=== PATIENT | female | born 1970 | race Caucasian/White ===

== ENCOUNTER 2017-05-01 18:21 | Emergency (ER) | payer OTHER ==
[~2017-05-01] VITALS: Ht 157.5 cm; Wt 97.0 kg
[~2017-05-01 18:21] MED LIST: APIX2.5T PO; HYDR-3288 PO; HYDR-3580 PO; LEVO100T5 PO
[2017-05-01 18:24] VITALS: BP 139/85; PULSE 93; RESP 16; TEMP 98.4; O2SAT 98
--- NOTE | 2017-05-01 19:24 | PD ---
HPI Chief Complaint: Cold / Flu Symptoms Time Seen by Provider: 19:19 Travel History International Travel<30 days: No Contact w/Intl Traveler<30days: No Traveled to known affect area: No History of Present Illness HPI The patient is a 46-year-old female that has had cough and wheezing since January. She saw the PA at [facility] back in January and was put on a Z-Delta but has a persistent cough and wheeze. The reason she came in [facility] is because she has a sharp, pleuritic pain on her right chest. She does have an appointment at [facility] tomorrow at 8:00. She has never had a pulmonary embolus. She was on [place] was about a year ago for hip replacement but she has been off aliquots for about a year now. She denies any hemoptysis or fever. PFSH Past Medical History Arthritis: Yes Asthma: Yes Autoimmune Disease: No Anxiety: No Depression: No Heart Rhythm Problems: No Cancer: No Cardiovascular Problems: No High Cholesterol: No Chemotherapy: No Chest Pain: No Congestive Heart Failure: No COPD: No Cerebrovascular Accident: No Diabetes: No Endocrine: Yes (HYPOTHYROIDISM) GERD: No Genitourinary: No Hepatitis: No Hiatal Hernia: Yes (HERNIA REPAIR IN THE PAST) Immune Disorder: No Kidney Stones: No Musculoskeletal: Yes (OA) Neurologic: Yes (ANGEL'S PALSY LEFT FACE) Psychiatric: No Reproductive: No Respiratory: No Migraines: Yes Radiation Therapy: No Renal Failure: No Seizures: No Sickle Cell Disease: No Sleep Apnea: No Thyroid Disease: Yes Ulcer: No LMP: MENOPAUSAL Past Surgical History Abdominal Surgery: Yes (INGUINAL HERNIA REPAIR, TUMMY TUCK) AICD: No Arteriovenous Shunt: No Cardiac Surgery: No Ear Surgery: Yes (PRK) Endocrine Surgery: No Eye Surgery: No Genitourinary Surgery: No Gynecologic Surgery: Yes ( X3) Insulin Pump: No Joint Replacement: Yes (LEFT HIP AND RIGHT HIP) Oral Surgery: Yes (TONSILECTOMY) Pacemaker: No Thoracic Surgery: No Social History Tobacco Use: No Substance Use: No Allergies-Medications (Allergen,Severity, Reaction): Coded Allergies: Sulfa (Sulfonamide Antibiotics) (Unverified Allergy, Severe, HIVES, ) Reported Meds & Prescriptions Reported Meds & Active Scripts Active Reported [medical marijuana] 1 Each INH BID Gabapentin 800 Mg Tab 800 Mg PO DAILY Levothyroxine (Levothyroxine Sodium) 88 Mcg Tab 88 Mcg PO DAILY Review of Systems Except as stated in HPI: all other systems reviewed are Neg Physical Exam Narrative GENERAL: The patient is alert, oriented 3 in moderate apparent distress with her pleuritic chest pain. SKIN: Focused skin assessment warm/dry. HEAD: Atraumatic. Normocephalic. EYES: Pupils equal and round. No scleral icterus. No injection or drainage. ENT: No nasal bleeding or discharge. Mucous membranes pink and moist. NECK: Trachea midline. No JVD. CARDIOVASCULAR: Regular rate and rhythm. No murmur appreciated. RESPIRATORY: No accessory muscle use. Clear to auscultation. Breath sounds equal bilaterally. GASTROINTESTINAL: Abdomen soft, non-tender, nondistended. Hepatic and splenic margins not palpable. MUSCULOSKELETAL: No obvious deformities. No clubbing. No cyanosis. No edema. NEUROLOGICAL: Awake and alert. No obvious cranial nerve deficits. Motor grossly within normal limits. Normal speech. PSYCHIATRIC: Appropriate mood and affect; insight and judgment normal. Data Data Last Documented VS Vital Signs Date Time Temp Pulse Resp B/P (MAP) Pulse Ox O2 Delivery O2 Flow Rate FiO2 05/01/17 20:16 93 18 153/70 (97) 99 Room Air 05/01/17 18:24 98.4 Orders Orders Complete Blood Count With Diff (05/01/17 19:19) Comprehensive Metabolic Panel (05/01/17 19:19) Urinalysis - C+S If Indicated (05/01/17 19:19) Influenzae A/B Antigen (05/01/17 19:19) Iv Access Insert/Monitor (05/01/17 19:19) Ecg Monitoring (05/01/17 19:19) Oximetry (05/01/17 19:19) Oxygen Administration (05/01/17 19:19) Chest, Pa & Lat (05/01/17 19:19) Sodium Chloride 0.9% Flush (Ns Flush) (05/01/17 19:30) Albuterol-Ipratropium Neb (Duoneb Neb) (05/01/17 19:30) D-Dimer (05/01/17 19:24) Urine Culture (05/01/17 20:08) Ct Pulmonary Angiogram (05/01/17 21:02) Sodium Chloride 0.9% Flush (Ns Flush) (05/01/17 21:15) Iohexol 350 Inj (Omnipaque 350 Inj) (05/01/17 21:41) Potassium Chloride (Kcl) (05/01/17 22:15) Electrocardiogram (05/01/17 22:06) Troponin I (05/01/17 20:16) Labs Laboratory Tests Test 05/01/17 20:08 05/01/17 20:16 Urine Color YELLOW Urine Turbidity HAZY Urine pH 5.5 Urine Specific [place] 1.026 Urine Protein NEG mg/dL Urine Glucose (UA) NEG mg/dL Urine Ketones TRACE mg/dL Urine Occult Blood SMALL Urine Nitrite POS Urine Bilirubin NEG Urine Leukocyte Esterase NEG Urine RBC 0-3 /hpf Urine WBC 6-8 /hpf Urine WBC Clumps FEW Urine Squamous Epithelial Cells 0-5 /hpf Urine Bacteria MANY /hpf Microscopic Urinalysis Comment CULTURE INDICATED White Blood Count 6.8 TH/MM3 Red Blood Count 4.70 MIL/MM3 Hemoglobin 14.2 GM/DL Hematocrit 42.9 % Mean Corpuscular Volume 91.3 FL Mean Corpuscular Hemoglobin 30.3 PG Mean Corpuscular Hemoglobin Concent 33.1 % Red Cell Distribution Width 11.7 % Platelet Count 268 TH/MM3 Mean Platelet Volume 8.3 FL Neutrophils (%) (Auto) 54.9 % Lymphocytes (%) (Auto) 29.5 % Monocytes (%) (Auto) 13.2 % Eosinophils (%) (Auto) 2.0 % Basophils (%) (Auto) 0.4 % Neutrophils # (Auto) 3.8 TH/MM3 Lymphocytes # (Auto) 2.0 TH/MM3 Monocytes # (Auto) 0.9 TH/MM3 Eosinophils # (Auto) 0.1 TH/MM3 Basophils # (Auto) 0.0 TH/MM3 CBC Comment DIFF FINAL Differential Comment D-Dimer Quantitative (PE/DVT) 0.66 MG/L FEU Blood Urea Nitrogen 24 MG/DL Creatinine 1.00 MG/DL Random Glucose 106 MG/DL Total Protein 8.8 GM/DL Albumin 4.2 GM/DL Calcium Level 9.6 MG/DL Alkaline Phosphatase 52 U/L Aspartate Amino Transf (AST/SGOT) 32 U/L Alanine Aminotransferase (ALT/SGPT) 35 U/L Total Bilirubin 0.7 MG/DL Sodium Level 137 MEQ/L Potassium Level 2.9 MEQ/L Chloride Level 101 MEQ/L Carbon Dioxide Level 27.6 MEQ/L Anion Gap 8 MEQ/L Estimat Glomerular Filtration Rate 59 ML/MIN MDM Medical Decision Making Medical Screen Exam Complete: Yes Emergency Medical Condition: Yes Medical Record Reviewed: Yes Interpretation(s) The chest x-ray shows no acute cardiopulmonary disease. The d-dimer is elevated at 0.66. The CBC is normal. The complete metabolic profile shows a potassium of 2.9, BUN of 24 and total protein of 8.8 but is otherwise unremarkable. The urinalysis shows trace ketones, small occult blood, positive nitrate, specific gravity 1.026, 6-8 white cells with few white cell clumping's and many bacteria and culture is indicated. The EKG shows no acute ST elevation or depression. Differential Diagnosis Electrolyte disorder, pulmonary embolus, pneumonia, bronchitis, chest wall pain , pleuritic pain, acute coronary syndrome-extremely unlikely, viral upper respiratory infection, bronchitis with bronchospasm Narrative Course The patient has bronchitis with bronchospasm. There is no evidence for pneumonia or pulmonary embolus on the imaging. The patient will follow-up tomorrow as scheduled at 8:00 with her [facility] physician. Diagnosis Primary Impression: Bronchitis with bronchospasm Additional Instructions: As we discussed, follow-up at 8:00 tomorrow with your [facility] physician. We will give you the results of the testing/imaging that we did here. This is to be taken to your [facility] physician. Disposition: 01 DISCHARGE HOME Condition: Stable Dewey Rodriguez MD May 01, 2017 19:24
[2017-05-01] MEDS ORDERED: SODIUM CHLORIDE 0.9% FLUSH 10 ML FLUSH IVF PRN ×2 (19:30→21:15)
[2017-05-01] MEDS: RESP: ALBUTEROL 2.5 MG/IPRATROPIUM 0.5 MG NEB (SCH) INH (19:37)
[2017-05-01 20:16] VITALS: BP 153/70; PULSE 93; RESP 18; O2SAT 99
[2017-05-01 20:34] LABS: AUTOMATED NEUTROPHIL # 3.8 TH/MM3 (1.8-7.7); BASOPHIL % 0.4 % (0.0-2.0); EOSINOPHIL # 0.1 TH/MM3 (0-0.4); HEMATOCRIT 42.9 % (35.0-46.0); HEMOGLOBIN 14.2 GM/DL (11.6-15.3); LYMPH % 29.5 % (9.0-44.0); MEAN CELL VOLUME 91.3 FL (80.0-100.0); MEAN CORPUSCULAR HEMOGLOBIN 30.3 PG (27.0-34.0); MEAN CORPUSCULAR HGB CONC 33.1 % (32.0-36.0); MEAN PLATELET VOLUME 8.3 FL (7.0-11.0); MONO % 13.2 % (0.0-8.0); MONOCYTE # 0.9 TH/MM3 (0-0.9); NEUT % 54.9 % (16.0-70.0); PLATELET COUNT 268 TH/MM3 (150-450); RED CELL DISTRIBUTION WIDTH 11.7 % (11.6-17.2); WHITE BLOOD COUNT 6.8 TH/MM3 (4.0-11.0)
[2017-05-01 20:34] LABS: BILIRUBIN, URINE NEG (NEG); BLOOD, URINE SMALL (NEG); GLUCOSE,URINE NEG (NEG); KETONE, URINE TRACE mg/dL (NEG); NITRITE,URINE POS (NEG); PH, URINE 5.5 (5.0-8.5); URINE LEUKOCYTE ESTERASE NEG (NEG)
[2017-05-01 20:36] LABS: URINE COLOR YELLOW (YELLW/STRAW)
[2017-05-01 20:39] LABS: BACTERIA, URINE MANY /hpf; RBC, URINE 0-3 /hpf (0-3); SQUAMOUS EPITHELIAL CELL URINE 0-5 /hpf (0-5); WHITE BLOOD CELL CLUMPS FEW
[2017-05-01 20:51] LABS: ALBUMIN 4.2 GM/DL (3.4-5.0); ALKALINE PHOSPHATASE 52 U/L (45-117); ALT (GPT) 35 U/L (10-53); AST (GOT) 32 U/L (15-37); BICARBONATE 27.6 MEQ/L (21.0-32.0); BLOOD UREA NITROGEN 24 MG/DL (7-18); CALCIUM 9.6 MG/DL (8.5-10.1); CHLORIDE 101 MEQ/L (98-107); GLOMERULAR FILTRATION RATE 59 ML/MIN (>89); GLUCOSE,RANDOM 106 MG/DL (74-106); SODIUM (NA) 137 MEQ/L (136-145); TOTAL BILIRUBIN ADULT 0.7 MG/DL (0.2-1.0); TOTAL PROTEIN 8.8 GM/DL (6.4-8.2)
--- NOTE | 2017-05-01 20:58 | RADRPT ---
EXAM DATE/TIME: 05/01/2017 19:42 [facility] COMPARISON: CHEST PA & LAT, January 12, 2016, 11:22. INDICATIONS : Right upper chest pain when breathing and cough. MEDICAL HISTORY : None. SURGICAL HISTORY : Left total hip. ENCOUNTER: Initial ACUITY: 1 day PAIN SCORE: 2/10 LOCATION: Bilateral chest FINDINGS: PA and lateral views of the chest demonstrate the lungs to be symmetrically aerated without evidence of mass, infiltrate or effusion. The cardiomediastinal contours are unremarkable. Osseous structure s are intact. CONCLUSION: 1. No acute cardiopulmonary disease. Don Alexander MD on May 01, 2017 at 20:56 Board Certified Radiologist. This report was verified electronically.
[2017-05-01] MEDS ORDERED: LEVO88TA2 PO (21:00)
[2017-05-01] MEDS ORDERED: GABA800T PO (21:00)
[2017-05-01] MEDS ORDERED: medical marijuana INH (21:22)
[2017-05-01] MEDS ORDERED: IOHEXOL 350 MG/ML 10 ML VIAL (for RAD DIAG) IVCONTRAST ONE (21:41)
--- NOTE | 2017-05-01 21:48 | RADRPT ---
EXAM DATE/TIME: 05/01/2017 21:32 [facility] COMPARISON: No previous studies available for comparison. INDICATIONS : Right sided chest pain today. IV CONTRAST: 69 cc Omnipaque 350 (iohexol) IV RADIATION DOSE: 13.19 CTDIvol (mGy) MEDICAL HISTORY : None SURGICAL HISTORY : section. ENCOUNTER: Initial ACUITY: 1 day PAIN SCALE: 2/10 LOCATION: Right chest TECHNIQUE: Volumetric scanning of the chest was performed using a pulmonary embolism protocol MIP images were re constructed. Using automated exposure control and adjustment of the mA and/or kV according to patien t size, radiation dose was kept as low as reasonably achievable to obtain optimal diagnostic quality images. DICOM format image data is available electronically for review and comparison. Follow-up recommendations for detected pulmonary nodules are based at a minimum on nodule size and pa tient risk factors according to Fleischner Society Guidelines. FINDINGS: PULMONARY ARTERIES: No filling defects are seen in the pulmonary arteries through the segmental level. LUNGS: There is no consolidation or pneumothorax . No concerning pulmonary nodule is visualized. PLEURAE: There is no pleural thickening or pleural effusion. MEDIASTINUM: There is good visualization of the great vessels of the middle mediastinum. No evidence of mediastin al or hilar adenopathy/mass. MUSCULOSKELETAL: Within normal limits for patient age. MISCELLANEOUS: The visualized upper abdominal organs demonstrate no acute abnormality. CONCLUSION: 1. No CT evidence for pulmonary artery embolism. 2. Unremarkable CT examination of the chest. Don Alexander MD on May 01, 2017 at 21:45 Board Certified Radiologist. This report was verified electronically.
[2017-05-01] MEDS ORDERED: POTASSIUM CHLORIDE 20 MEQ CONTROLLED RELEASE TAB PO ONE (22:15)
[2017-05-01 22:43] LABS: TROPONIN I LESS THAN 0.02 NG/ML (0.02-0.05)
[2017-05-01] MEDS ORDERED: NITROFURANTOIN MONOHYD MACROCR 100 MG CAP PO ONE (23:00)
[2017-05-01] MEDS ORDERED: ACETAMINOPHEN 325 MG TAB PO ONE (23:00)
[2017-05-01] MEDS ORDERED: MACR100C2 PO (23:01)
[2017-05-01 23:12] VITALS: BP 104/64
--- NOTE | 2017-05-02 13:46 | EKG ---
Date Performed: 05/01/2017 Time Performed: 22:29:22 PTAGE: 46 years EKG: Sinus rhythm POSSIBLE LEFT ATRIAL ENLARGEMENT MODERATE T-WAVE ABNORMALITY, CONSIDER LATERAL ISCHEMIA MODERATE T-W AVE ABNORMALITY, CONSIDER INFERIOR ISCHEMIA ABNORMAL ECG PREVIOUS TRACING : 06/09/2015 09.12 Since the prior tracing, the fairly prominent inferolateral ST-T wave changes are new. Clinical correlation will be important. DOCTOR: Melania Evangelista Interpretating Date/Time 05/02/2017 13:44:26
== END 2017-05-01 23:17 | disposition home or self-care (01) ==
LOC: PHED 18:21
DX: J40 Bronchitis, not specified as acute or chronic (principal); R94.31 Abnormal electrocardiogram [ECG] [EKG]; R82.90 Unspecified abnormal findings in urine; B96.20 Unspecified Escherichia coli [E. coli] as the cause of diseases classified elsewhere; J45.909 Unspecified asthma, uncomplicated; E03.9 Hypothyroidism, unspecified; Z79.899 Other long term (current) drug therapy; Z88.2 Allergy status to sulfonamides; M19.90 Unspecified osteoarthritis, unspecified site
CPT/HCPCS: 71046; 71275; 80053; 81001; 84484; 85025; 85379; 87077; 87086; 87186; 87804; 93005; 94640; 94664; 99285; Q9967